=== PATIENT | female | born 1950 | race Caucasian/White ===

== ENCOUNTER 2018-08-13 06:55 | Day surgery (SDC) | payer OTHER, MEDICARE ==
[2018-08-13 07:31] VITALS: BMI 24.7
[2018-08-13] MEDS ORDERED: TETRACAINE/BENZOCAINE/BUTAMBEN 20 GM SPR TP ONE (07:55)
[2018-08-13 08:34] VITALS: TEMP 97.7
[2018-08-13 09:24] VITALS: BP 152/77; PULSE 60
--- NOTE | 2018-08-15 14:26 | PATH ---
Surgical Pathology Report Patient Name: TIFFANY FLORENTINO [facility]. Rec. #: [id number] /Age/Gender: 1950 (Age: 68) / F Account: [id number] Location: U-ENDOSCOPY Taken: 08/13/2018 Received: 08/13/2018 Reported: 08/14/2018 Physicians: Dru Etienne M.D. Specimen(s) Received A: BX 2ND PORTION DUODENUM AND DUODENAL BULB B: BX ANTRUM Clinical History Rule out ulcer Postoperative diagnosis: Atrophic gastritis Final Diagnosis A. DUODENUM, SECOND PORTION AND DUODENAL BULB, BIOPSY: Duodenal mucosa withOUT SIGNIFICANT PATHOLOGIC findings. B. STOMACH, ANTRUM, BIOPSY: GASTRIC ANTRAL MUCOSA WITH MILD CHRONIC GASTRITIS. IMMUNOHISTOCHEMICAL STAIN FOR H. PYLORI IS NEGATIVE. Electronically Signed Portia Paniting M.D. Gross Description A. Received in formalin, labeled "biopsy second portion of duodenum and duodenal bulb" are 2 camacho, irregular portions of soft tissue averaging 0.3 cm. in greatest dimension. The specimens are submitted in toto in one cassette. B. Received in formalin, labeled "biopsy antrum" are 4 camacho, irregular portions of soft tissue ranging from 0.2-0.3 cm. in greatest dimension. The specimens are submitted in toto in one cassette. 08/13/201808/13/2018
== END 2018-08-13 09:24 | disposition home or self-care (01) ==
LOC: JASU-ENDO 06:55
PROVIDERS: ATTEND Internal Medicine Gastroenterology
PROC: 0DB68ZX Excision of Stomach, Via Natural or Artificial Opening Endoscopic, Diagnostic (ICD-10-PCS; 2018-08-13)
PROC: 0DB98ZX Excision of Duodenum, Via Natural or Artificial Opening Endoscopic, Diagnostic (ICD-10-PCS; principal; 2018-08-13 08:00)
DX: K29.40 Chronic atrophic gastritis without bleeding (principal)
CPT/HCPCS: 88305-TC; 88342-TC

== ENCOUNTER 2018-11-07 01:28 | Inpatient (IN) | payer OTHER, MEDICARE ==
--- NOTE | 2018-11-07 02:42 | PDOC ---
History of Present Illness - General Chief Complaint: Syncope/Near Syncope Stated Complaint: FALL,SYNCOPE Time Seen by Provider: 11/07/18 02:42 History Source: Patient Exam Limitations: No Limitations - History of Present Illness Initial Comments: 11/07/18 03:05 68 year old female with PMH HTN, atrophic gastritis, restless leg syndrome, insomnia presented to ED for syncopal episode and fall. Pt stated she remembered getting out of bed to walk to the bathroom, and then layed back in bed. She then woke up face down on the ground with no memory of how she got there. She admitted to facial pain, headache, right sided neck pain. She admitted to headaches the last 3 days that will subside with tylenol/motrin. New medication changes include increase of dose of ropinirole from 0.25 mg to 0.5 mg yesterday, newly added medication x7 days. Allergies: NKDA PCP: Summer Oliveira Cardio: Odette Neuro: Barrera GI: Jaimie Past History - Past Medical History Allergies/Adverse Reactions: Allergies Allergy/AdvReac Type Severity Reaction Status Date / Time No Known Allergies Allergy Verified 11/07/18 02:30 Home Medications: Ambulatory Orders Lisinopril [Zestril] 20 mg PO DAILY 09/21/16 Multivitamins [Multivit ([facility] Formulary)] 1 tab PO DAILY 08/12/18 Vit B12/Folic Acid/B6/Aa No.15 [Glycotrol Capsule] 1 each PO DAILY 08/12/18 Losartan Potassium 25 mg PO DAILY 11/07/18 Ropinirole HCl 0.5 mg PO DAILY 11/07/18 Cardiac Disorders: Yes (MVP) GI Disorders: Yes (POLYP,DIVERTICULOSIS) HTN: Yes - Suicide/Smoking/Psychosocial Hx Smoking History: Never smoked Have you smoked in the past 12 months: No Information on smoking cessation initiated: No Hx Alcohol Use: No Drug/Substance Use Hx: No Substance Use Type: None Hx Substance Use Treatment: No Review of Systems - Review of Systems Able to Perform ROS?: Yes Comments:: 11/07/18 03:08 General: denied fever, chills, night sweats, generalized weakness. HEENT: denied sore throat, rhinorrhea, ear pain. Neck: admitted to neck pain. Heart: admitted to syncope. denied chest pain, palpitations, lower extremity swelling, diaphoresis. Respiratory: denied shortness of breath, cough, sputum production, hemoptysis. Abdomen: denied abdominal pain, nausea, vomiting, diarrhea, constipation, blood in stool. : denied dysuria, increased urinary frequency, hematuria, urinary incontinence , flank pain. Back: denied back pain. Musculoskeletal: denied joint pain, muscle pain, joint swelling. Neurological: admitted to headache. denied dizziness, numbness, tingling, weakness. Skin: admitted to abrasion. denied rash, laceration. *Physical Exam - Vital Signs Last Vital Signs Temp Pulse Resp BP Pulse Ox 97.9 F 73 18 160/84 96 11/07/18 01:28 11/07/18 01:28 11/07/18 01:28 11/07/18 01:28 11/07/18 01:28 - Physical Exam Comments: 11/07/18 03:09 Constitutional: Well-nourished, Well-developed, appearing stated age. HEENT: right frontal scalp hematoma. abrasion and redness to right upper face. EOMI. PERRLA. Neck: no midline c-spine tenderness. no paraspinal tenderness. Neck: supple. Full ROM. Heart: regular rhythm. no murmurs, rubs or gallops. Chest: no anterior chest wall tenderness. Lungs: clear to auscultation bilaterally. no crackles, rhonchi or wheezing. no stridor. Abdomen: soft, nontender. normal bowel sounds. no rebound, guarding, masses. Back: no midline t-spine or L-spine tenderness. no low back tenderness. Hips: pelvis stable. no hip tenderness. LE equal in length, no external rotation. Extremities: Peripheral pulses intact. No lower extremity edema. Neurological: CN 2-12 grossly intact. Moves all four extremities. Psych: awake, alert, oriented x3. Follows commands. Answers questions appropriately. Moderate Sedation - Procedure Monitoring Vital Signs: Procedure Monitoring Vital Signs Temperature 97.9 F 11/07/18 01:28 Pulse Rate 73 11/07/18 01:28 Respiratory Rate 18 11/07/18 01:28 Blood Pressure 160/84 11/07/18 01:28 O2 Sat by Pulse Oximetry (%) 96 11/07/18 01:28 ED Treatment Course - LABORATORY CBC & Chemistry Diagram: 11/07/18 03:01 11/07/18 05:46 Medical Decision Making - Medical Decision Making 11/07/18 03:11 68 year old female with above PMH presented to ED for syncopal episode and fall. Signs of trauma present to right upper face. Newly increased ropinirole dose from 0.25 to 0.5 mg yesterday. Initial Vital Signs Temp Pulse Resp BP Pulse Ox 97.9 F 73 18 160/84 96 11/07/18 01:28 11/07/18 01:28 11/07/18 01:28 11/07/18 01:28 11/07/18 01:28 Afebrile. No tachycardia. No tachypnea. Mild hypertension. No hypoxia on room air. Labs ordered: CBC, CMP, cardiac enzymes Imaging ordered: CXR, pelvis XR, CT head, CT cervical spine Medications ordered: Tylenol EKG performed at 0152: rate 71, regular rhythm, normal axis, normal intervals, no acute ST changes. CBC WBC 8.1 K/mm3 (4.0-10.0) 11/07/18 03:01 RBC 4.11 M/mm3 (3.60-5.2) 11/07/18 03:01 Hgb 13.5 GM/dL (10.7-15.3) 11/07/18 03:01 Hct 38.7 % (32.4-45.2) 11/07/18 03:01 MCV 94.1 fl (80-96) 11/07/18 03:01 MCH 32.9 pg (25.7-33.7) 11/07/18 03:01 MCHC 35.0 g/dl (32.0-36.0) 11/07/18 03:01 RDW 13.5 % (11.6-15.6) 11/07/18 03:01 Plt Count 209 K/MM3 (134-434) 11/07/18 03:01 MPV 8.3 fl (7.5-11.1) 11/07/18 03:01 Absolute Neuts (auto) 6.1 K/mm3 (1.5-8.0) 11/07/18 03:01 Neutrophils % 75.3 % (42.8-82.8) 11/07/18 03:01 Lymphocytes % 16.9 % (8-40) 11/07/18 03:01 Monocytes % 6.7 % (3.8-10.2) 11/07/18 03:01 Eosinophils % 0.7 % (0-4.5) 11/07/18 03:01 Basophils % 0.4 % (0-2.0) 11/07/18 03:01 Nucleated RBC % 0 % (0-0) 11/07/18 03:01 No leukocytosis. No anemia. 11/07/18 05:38 Lab reported CMP hemolyzed. Redraw sent. Lab reported CMP contaminated. Redraw sent. 11/07/18 06:23 CT head: right frontal scalp hematoma. no intracranial hematoma or mass. CT cervical spine: no acute fracture/dislocation. CTfacial bones: no acute fracture 11/07/18 06:41 CMP Sodium 139 mmol/L (136-145) 11/07/18 05:46 Potassium 4.4 mmol/L (3.5-5.1) 11/07/18 05:46 Chloride 109 mmol/L (98-107) H 11/07/18 05:46 Carbon Dioxide 24 mmol/L (21-32) 11/07/18 05:46 Anion Gap 7 MMOL/L (8-16) L 11/07/18 05:46 BUN 25 mg/dL (7-18) H 11/07/18 05:46 Creatinine 0.8 mg/dL (0.55-1.3) 11/07/18 05:46 Creat Clearance w eGFR > 60 (>60) 11/07/18 05:46 Random Glucose 104 mg/dL (74-106) 11/07/18 05:46 Calcium 8.9 mg/dL (8.5-10.1) 11/07/18 05:46 Total Bilirubin 0.4 mg/dL (0.2-1) 11/07/18 05:46 AST 18 U/L (15-37) 11/07/18 05:46 ALT 23 U/L (13-61) 11/07/18 05:46 Alkaline Phosphatase 84 U/L (45-117) 11/07/18 05:46 Creatine Kinase 173 IU/L (26-192) 11/07/18 05:46 Troponin I 0.09 ng/ml (0.00-0.05) H 11/07/18 05:46 Total Protein 6.7 g/dl (6.4-8.2) 11/07/18 05:46 Albumin 4.1 g/dl (3.4-5.0) 11/07/18 05:46 TSH 0.84 uIU/ml (0.358-3.74) 11/07/18 05:46 No electrolyte abnormalities. No OLMAN. BUN/CR>20 - Pt is dehydrated No transaminitis Normal TSH Positive troponin. Pt to be admitted to Dr. Oliveira's service for syncopal episode and positive troponin. Dr. Oliveira's office paged. Dr. Pino's office paged. 11/10/18 09:01 Official CXR report: no acute pathology Official Pelvis XR report: no acute pathology *DC/Admit/Observation/Transfer Diagnosis at time of Disposition: Fall, Troponin I above reference range Syncopal episodes Qualifiers: Syncope type: unspecified Qualified Code(s): R55 - Syncope and collapse - Discharge Dispostion Condition at time of disposition: Stable Decision to Admit order: Yes - Referrals - Patient Instructions - Post Discharge Activity
[2018-11-07] MEDS ORDERED: ACETAMINOPHEN 1000 MG/100 ML VIAL (NON FORMULARY) IVPB ONE (03:07)
[2018-11-07] MEDS ORDERED: ACETAMINOPHEN INJECTION 100 ML IVPB ONE (03:10)
[2018-11-07 03:17] LABS: BASO % 0.4 % (0-2.0); EOS % 0.7 % (0-4.5); HEMATOCRIT 38.7 % (32.4-45.2); HEMOGLOBIN 13.5 GM/dL (10.7-15.3); LYMPH % 16.9 % (8-40); MCH 32.9 pg (25.7-33.7); MEAN CELL VOLUME 94.1 fl (80-96); MEAN PLT VOLUME 8.3 fl (7.5-11.1); MONO % 6.7 % (3.8-10.2); NEUT % 75.3 % (42.8-82.8); PLATELET COUNT 209 K/MM3 (134-434); RBC 4.11 M/mm3 (3.60-5.2); RDW 13.5 % (11.6-15.6); WHITE BLOOD COUNT 8.1 K/mm3 (4.0-10.0)
--- NOTE | 2018-11-07 03:41 | PDOC ---
Attending Attestation - Resident Resident Name: AreliKeerthi - ED Attending Attestation I have performed the following: I have examined & evaluated the patient, The case was reviewed & discussed with the resident, I agree w/resident's findings & plan, Exceptions are as noted - HPI HPI: 11/07/18 06:08 68F pmh htn, gastritis, RLS, here after episode of kamar syncope. Pt woke up face down on the ground next to her bed with no recollection of what happened. Recent change in medication as documented in resident note. - Physicial Exam PE: 11/07/18 06:10 Agree with exam as documented by resident - Medical Decision Making 11/07/18 06:10 Syncopal event with possible head trauma f/u imaging, labs, ekg likely admit for full syncope eval
[2018-11-07 04:47] LABS: INR 0.96 (0.83-1.09); PROTHROMBIN TIME (PATIENT) 11.3 SEC (9.7-13.0)
[2018-11-07 04:49] LABS: ACTIVATED PTT 31.9 SECONDS (25.2-36.5)
[2018-11-07 05:38] VITALS: BMI 23.9
[2018-11-07 06:34] LABS: ALBUMIN 4.1 g/dl (3.4-5.0); ALK PHOS 84 U/L (45-117); ANION GAP 7 MMOL/L (8-16); BILIRUBIN,TOTAL 0.4 mg/dL (0.2-1); BLOOD UREA NITROGEN 25 mg/dL (7-18); CALCIUM 8.9 mg/dL (8.5-10.1); CHLORIDE 109 mmol/L (98-107); CO2 24 mmol/L (21-32); CREATININE 0.8 mg/dL (0.55-1.3); GLUCOSE,RANDOM 104 mg/dL (74-106); POTASSIUM 4.4 mmol/L (3.5-5.1); SGOT/AST 18 U/L (15-37); SGPT/ALT 23 U/L (13-61); SODIUM 139 mmol/L (136-145); TOT PROT 6.7 g/dl (6.4-8.2)
[2018-11-07] MEDS ORDERED: ASPIRIN 81 MG CHEWABLE TABLETS PO ONE (06:38)
[2018-11-07] MEDS ORDERED: ASPIRIN 81 MG CHEWABLE TABLETS ONE (06:41)
--- NOTE | 2018-11-07 07:22 | HP ---
Admitting History and Physical - Primary Care Physician PCP: Summer Oliveira S - Admission Chief Complaint: syncope; CP History of Present Illness: 68 year old female with PMH HTN, atrophic gastritis, restless leg syndrome, insomnia presented to ED for syncopal episode and fall. Pt stated she remembered getting out of bed to walk to the bathroom, and then layed back in bed. She then woke up face down on the ground with no memory of how she got there. She admitted to facial pain, headache, right sided neck pain. She admitted to headaches the last 3 days that will subside with tylenol/motrin. New medication changes include increase of dose of ropinirole from 0.25 mg to 0.5 mg yesterday, newly added medication x7 days. 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: Syncope Cardiovascular: Yes: HTN - Smoking History Smoking history: Never smoked Have you smoked in the past 12 months: No - Alcohol/Substance Use Hx Alcohol Use: No History of Substance Use: reports: None - Social History Usual Living Arrangement: Yes: Alone ADL: Independent 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: No Home Medications - Allergies Allergies/Adverse Reactions: Allergies Allergy/AdvReac Type Severity Reaction Status Date / Time No Known Allergies Allergy Verified 11/07/18 02:30 - Home Medications Home Medications: Ambulatory Orders Lisinopril [Zestril] 20 mg PO DAILY 09/21/16 Multivitamins [Multivit ([facility] Formulary)] 1 tab PO DAILY 08/12/18 Vit B12/Folic Acid/B6/Aa No.15 [Glycotrol Capsule] 1 each PO DAILY 08/12/18 Losartan Potassium 25 mg PO DAILY 11/07/18 Ropinirole HCl 0.5 mg PO DAILY 11/07/18 Family Disease History - Family Disease History Family History: Unremarkable Review of Systems - Review of Systems Constitutional: denies: Chills, Fever Eyes: denies: Blind Spots, Blurred Vision, Double Vision HENT: denies: Difficult Swallowing, Ear Pain Neck: denies: Pain on Movement, Stiffness, Tenderness Cardiovascular: denies: Chest Pain, Edema, Palpitations, Shortness of Breath Respiratory: denies: Cough, SOB Gastrointestinal: denies: Abdominal Pain, Constipation, Diarrhea, Vomiting Genitourinary: denies: Burning, Dysuria, Flank Pain Musculoskeletal: denies: Back Pain, Extremity Pain, Muscle Pain Integumentary: denies: Pruritis, Rash, Wound Neurological: reports: Change in LOC, Syncope. denies: Change in Speech, Confusion, Dizziness, Seizure, Tremors, Unsteady Gait, Weakness Endocrine: denies: Unexplained Weight Gain, Unexplained Weight Loss Hematology/Lymphatic: denies: Easily Bruised, Excessive Bleeding, Swollen Glands Psychiatric: denies: Anxiety, Depression, Suicidal Physical Examination Vital Signs: Vital Signs Temperature 97.9 F 11/07/18 01:28 Pulse Rate 73 11/07/18 01:28 Respiratory Rate 18 11/07/18 01:28 Blood Pressure 160/84 11/07/18 01:28 O2 Sat by Pulse Oximetry (%) 96 11/07/18 01:28 Constitutional: Yes: No Distress, Calm Eyes: Yes: Conjunctiva Clear HENT: Yes: Other (R facial scratces) Neck: Yes: Supple Cardiovascular: Yes: Regular Rate and Rhythm Respiratory: Yes: CTA Bilaterally Gastrointestinal: Yes: Soft. No: Tenderness Renal/: No: CVA Tenderness - Left, CVA Tenderness - Right, Hematuria Musculoskeletal: No: Joint Stiffness, Joint Swelling Extremities: No: Cold, Cool, Cyanosis Edema: No Integumentary: No: Rash, Venous Stasis Changes Neurological: Yes: WNL, Alert, Oriented ...Motor Strength: WNL Psychiatric: Yes: WNL, Alert, Oriented. No: Agitated, Suicidal Ideation Labs: CBC, BMP 11/07/18 03:01 11/07/18 05:46 Imaging - Results Chest X-ray: Report Reviewed Cat Scan: Report Reviewed Other: Report Reviewed Assessment/Plan 68 year old female with PMH HTN, atrophic gastritis, restless leg syndrome, insomnia presented to ED for syncopal episode and fall. New medication changes include increase of dose of ropinirole from 0.25 mg to 0.5 mg yesterday, newly added medication x7 days. 1 troponij borderline positive admit to telemetry cardiology and neurology eval falls pfx d.w pt and staff, d/w pt's daughter at bedside
--- NOTE | 2018-11-07 09:08 | EKG ---
Test Reason : Blood Pressure : / mmHG Vent. Rate : 071 BPM Atrial Rate : 071 BPM P-R Int : 162 ms QRS Dur : 088 ms QT Int : 404 ms P-R-T Axes : 072 045 046 degrees QTc Int : 439 ms NORMAL SINUS RHYTHM NORMAL ECG WHEN COMPARED WITH ECG OF 23-APR-2002 12:36, NO SIGNIFICANT CHANGE WAS FOUND Confirmed by CIARAN VIVEROS MD ([id number]) on 11/07/2018 9:07:43 AM Referred By: Confirmed By:CIARAN VIVEROS MD
--- NOTE | 2018-11-07 15:20 | CON.GI ---
Consult Consult Specialty:: Gastroenterology Referred by:: Dr Oliveira Reason for Consultation:: Syncope - History of Present Illness Chief Complaint: Syncope returning to bed after micturition History of Present Illness: 68F awake to urinate and suffered a syncopal spell without a prodrome as she was getting into bed. She awoke within 20 minutes prone in her hands and knees with right lateral paraorbital trauma. She denies any preceding pain, dyspnea, diaphoresis or palpitations. She had not strained to urinate. She has eaten well during the day. No recent vasovagal spells. She is being followed by Dr Rust and a felter tennis balls for generally not feeling well. She had a recent trial of pramipexole which she couldn't tolerate and has taken her first dose of ropinirole about 3 hours before the syncopal event. She has been experiencing indigestion, bloating and belching that led to an EGD with me on 08/13/18 which revealed only atrophic gastritis. I advised her to wean off Ranitidine and to try Gaviscon. She reports that she has been having abdominal cramps, a diminished appetite and hunger pangs since the EGD which failed to reveled H. pylori or celiac disease. She believes that the pramipexol was given to alleviate her abdominal cramps. - History Source History Provided By: Patient Limitations to Obtaining History: No Limitations - Past Medical History Cardio/Vascular: Yes: HTN, Other (mitral valve prolapse) Gastrointestinal: Yes: Diverticulosis, Gastritis (atrophic), Other (serrated adenoma right colon 2016) Musculoskeletal: Yes: Chronic low back pain (lumbar disc disease), Other ( cervical spinal stenosis) - Past Surgical History Past Surgical History: Yes: Breast Biopsy (bilateral breast cyst and fibroid), Colonoscopy, , Hysterectomy (TAHBSO), Upper Endoscopy - Alcohol/Substance Use Hx Alcohol Use: Yes (rare) History of Substance Use: reports: None - Smoking History Smoking history: Never smoked Have you smoked in the past 12 months: No - Social History Usual Living Arrangement: Alone () ADL: Independent 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 : [facility] 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: No Home Medications - Allergies Allergies/Adverse Reactions: Allergies Allergy/AdvReac Type Severity Reaction Status Date / Time No Known Allergies Allergy Verified 11/07/18 02:30 - Home Medications Home Medications: Ambulatory Orders Lisinopril [Zestril] 20 mg PO DAILY 09/21/16 Multivitamins [Multivit ([facility] Formulary)] 1 tab PO DAILY 08/12/18 Vit B12/Folic Acid/B6/Aa No.15 [Glycotrol Capsule] 1 each PO DAILY 08/12/18 Losartan Potassium 25 mg PO DAILY 11/07/18 Ropinirole HCl 0.5 mg PO DAILY 11/07/18 Family Disease History - Family Disease History Family Disease History: CA: Father (lung cancer), Other: Mother ( if COPD) Review of Systems - Review of Systems Constitutional: reports: Loss of Appetite Eyes: reports: No Symptoms HENT: reports: No Symptoms Neck: reports: No Symptoms Cardiovascular: reports: No Symptoms Respiratory: reports: No Symptoms Gastrointestinal: reports: Abdominal Pain, Bloating Genitourinary: reports: No Symptoms Musculoskeletal: reports: Back Pain, Muscle Cramps, Muscle Weakness Neurological: reports: Headache, Numbness Physical Exam-GI Vital Signs: Vital Signs Temperature 98.4 F 11/07/18 07:34 Pulse Rate 74 11/07/18 10:02 Respiratory Rate 16 11/07/18 10:02 Blood Pressure 127/74 11/07/18 10:02 O2 Sat by Pulse Oximetry (%) 99 11/07/18 10:02 CBC,CMP WBC 8.1 K/mm3 (4.0-10.0) 11/07/18 03:01 RBC 4.11 M/mm3 (3.60-5.2) 11/07/18 03:01 Hgb 13.5 GM/dL (10.7-15.3) 11/07/18 03:01 Hct 38.7 % (32.4-45.2) 11/07/18 03:01 MCV 94.1 fl (80-96) 11/07/18 03:01 MCH 32.9 pg (25.7-33.7) 11/07/18 03:01 MCHC 35.0 g/dl (32.0-36.0) 11/07/18 03:01 RDW 13.5 % (11.6-15.6) 11/07/18 03:01 Plt Count 209 K/MM3 (134-434) 11/07/18 03:01 MPV 8.3 fl (7.5-11.1) 11/07/18 03:01 Absolute Neuts (auto) 6.1 K/mm3 (1.5-8.0) 11/07/18 03:01 Neutrophils % 75.3 % (42.8-82.8) 11/07/18 03:01 Lymphocytes % 16.9 % (8-40) 11/07/18 03:01 Monocytes % 6.7 % (3.8-10.2) 11/07/18 03:01 Eosinophils % 0.7 % (0-4.5) 11/07/18 03:01 Basophils % 0.4 % (0-2.0) 11/07/18 03:01 Nucleated RBC % 0 % (0-0) 11/07/18 03:01 ESR 13 mm/hr (0-30) 11/07/18 12:55 Sodium 139 mmol/L (136-145) 11/07/18 05:46 Potassium 4.4 mmol/L (3.5-5.1) 11/07/18 05:46 Chloride 109 mmol/L (98-107) H 11/07/18 05:46 Carbon Dioxide 24 mmol/L (21-32) 11/07/18 05:46 Anion Gap 7 MMOL/L (8-16) L 11/07/18 05:46 BUN 25 mg/dL (7-18) H 11/07/18 05:46 Creatinine 0.8 mg/dL (0.55-1.3) 11/07/18 05:46 Creat Clearance w eGFR > 60 (>60) 11/07/18 05:46 Random Glucose 104 mg/dL (74-106) 11/07/18 05:46 Calcium 8.9 mg/dL (8.5-10.1) 11/07/18 05:46 Total Bilirubin 0.4 mg/dL (0.2-1) 11/07/18 05:46 AST 18 U/L (15-37) 11/07/18 05:46 ALT 23 U/L (13-61) 11/07/18 05:46 Alkaline Phosphatase 84 U/L (45-117) 11/07/18 05:46 Creatine Kinase 209 IU/L (26-192) H 11/07/18 12:01 Creatine Kinase Index 0.6 % (0.0-5.0) 11/07/18 12:01 CK-MB (CK-2) 1.4 ng/mL (0.5-3.6) 11/07/18 12:01 Troponin I < 0.02 ng/ml (0.00-0.05) 11/07/18 12:01 Total Protein 6.7 g/dl (6.4-8.2) 11/07/18 05:46 Albumin 4.1 g/dl (3.4-5.0) 11/07/18 05:46 Vitamin B12 560 pg/ml (193-986) 11/07/18 12:55 TSH 0.84 uIU/ml (0.358-3.74) 11/07/18 05:46 Current Medications Generic Name Dose Route Start Last Admin Trade Name Freq PRN Reason Stop Dose Admin Aspirin 81 mg 11/08/18 10:00 Asa - PO DAILY [facility] Lisinopril 20 mg 11/08/18 10:00 Prinivil PO DAILY [facility] Losartan Potassium 25 mg 11/08/18 10:00 Cozaar - PO DAILY [facility] Multivitamins/Minerals/Vitamin C 1 tab 11/08/18 10:00 Tab-A-Vit - PO DAILY [facility] Non-Formulary Medication 1 each 11/08/18 10:00 Vit B12/Folic Acid/B6/Aa No.15 [Glycotrol Capsule] PO DAILY [facility] Ranitidine HCl 150 mg 11/08/18 10:00 Zantac - PO DAILY [facility] Ropinirole HCl 0.5 mg 11/08/18 10:00 Requip - PO DAILY [facility] Constitutional: Yes: Anxious Eyes: Yes: Conjunctiva Clear HENT: Yes: Other (right lateral paraorbital maceration and bruising) Neck: Yes: Supple Cardiovascular: Yes: Regular Rate and Rhythm Respiratory: Yes: CTA Bilaterally Gastrointestinal Inspection: Yes: Scars (vertical suprapubic incision) ...Auscultate: Yes: Normoactive Bowel Sounds ...Palpate: Yes: Soft, Other (nontender) ...Rectal Exam: Yes: Guaiac Negative (no masses, brown guaiac negative stool) Edema: No Peripheral Pulses WNL: Yes Neurological: Yes: Alert, Oriented Labs: CBC, BMP 11/07/18 03:01 11/07/18 05:46 INR, PTT INR 0.96 (0.83-1.09) 11/07/18 04:14 Problem List - Problems (1) Syncopal episodes Assessment/Plan: I do not think that this syncopal episode is related to any GI process. No GI testing is planned. If GI bleeding or any GI symptoms arise please recall us. Code(s): R55 - SYNCOPE AND COLLAPSE (2) Serrated adenoma of colon Code(s): D12.6 - BENIGN NEOPLASM OF COLON, UNSPECIFIED (3) Diverticulosis Code(s): K57.90 - DVRTCLOS OF INTEST, PART UNSP, W/O PERF OR ABSCESS W/O BLEED (4) Atrophic gastritis Code(s): K29.40 - CHRONIC ATROPHIC GASTRITIS WITHOUT BLEEDING (5) Hypertension Code(s): I10 - ESSENTIAL (PRIMARY) HYPERTENSION (6) Lumbar back pain Code(s): M54.5 - LOW BACK PAIN (7) Spinal stenosis in cervical region Code(s): M48.02 - SPINAL STENOSIS, CERVICAL REGION
--- NOTE | 2018-11-07 16:16 | CON.CARD ---
Consult Consult Specialty:: Cardiology Referred by:: Summer Oliveira MD Reason for Consultation:: Syncope, demand ischemia - History of Present Illness Chief Complaint: Post micturition syncope History of Present Illness: Chief Complaint: Syncope returning to bed after micturition History of Present Illness: 68F awake to urinate and suffered a syncopal spell without prodromal as she was getting into bed. She awoke within 20 minutes prone in her hands and knees with right lateral paraorbital trauma. She denies any preceding pain, dyspnea, near syncope, diaphoresis or palpitations. She had not strained to urinate. She has eaten well during the day. No recent vasovagal spells. She is being followed by Dr Rust and a electrical helper for generally not feeling well. She had a recent trial of pramipexole which she couldn't tolerate and has taken her first dose of ropinirole about 3 hours before the syncopal event. Allergies: NKDA PCP: Summer Oliveira Cardio: Odette Neuro: Barrera GI: Jaimie - History Source History Provided By: Patient Limitations to Obtaining History: No Limitations - Past Medical History Cardio/Vascular: Yes: HTN, Other (mitral valve prolapse) Gastrointestinal: Yes: Diverticulosis, Gastritis (atrophic), Other (serrated adenoma right colon 2016) Musculoskeletal: Yes: Chronic low back pain (lumbar disc disease), Other ( cervical spinal stenosis) - Past Surgical History Past Surgical History: Yes: Breast Biopsy (bilateral breast cyst and fibroid), Colonoscopy, , Hysterectomy (TAHBSO), Upper Endoscopy - Alcohol/Substance Use Hx Alcohol Use: Yes (rare) History of Substance Use: reports: None - Smoking History Smoking history: Never smoked Have you smoked in the past 12 months: No - Social History Usual Living Arrangement: Alone () ADL: Independent 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[employer] 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: No Home Medications - Allergies Allergies/Adverse Reactions: Allergies Allergy/AdvReac Type Severity Reaction Status Date / Time No Known Allergies Allergy Verified 11/07/18 02:30 - Home Medications Home Medications: Ambulatory Orders Lisinopril [Zestril] 20 mg PO DAILY 09/21/16 Multivitamins [Multivit ([facility] Formul[facility])] 1 tab PO DAILY 08/12/18 Vit B12/Folic Acid/B6/Aa No.15 [Glycotrol Capsule] 1 each PO DAILY 08/12/18 Losartan Potassium 25 mg PO DAILY 11/07/18 Ropinirole HCl 0.5 mg PO DAILY 11/07/18 Family Disease History - Family Disease History Family Disease History: CA: Father (lung cancer), Other: Mother ( if COPD) Review of Systems - Review of Systems Neurological: reports: Syncope Vital Signs: Vital Signs Temperature 98.4 F 11/07/18 07:34 Pulse Rate 74 11/07/18 10:02 Respiratory Rate 16 11/07/18 10:02 Blood Pressure 127/74 11/07/18 10:02 O2 Sat by Pulse Oximetry (%) 99 11/07/18 10:02 Constitutional: Yes: No Distress, Calm, Thin Neck: Yes: Supple Respiratory: Yes: Regular, CTA Bilaterally Gastrointestinal: Yes: Normal Bowel Sounds, Soft Cardiovascular: Yes: Regular Rate and Rhythm JVD: No Carotid Bruit: No Heart Sounds: Yes: S1, S2 Edema: No - Other Data Labs, Other Data: CBC, BMP 11/07/18 03:01 11/07/18 05:46 INR, PTT INR 0.96 (0.83-1.09) 11/07/18 04:14 Troponin, BNP 11/07/18 11/07/18 11/07/18 03:01 04:37 05:46 Troponin I Cancelled No Result Required. 0.09 H 11/07/18 12:01 Troponin I < 0.02 Troponin, BNP 11/07/18 11/07/18 11/07/18 03:01 04:37 05:46 Troponin I Cancelled No Result Required. 0.09 H 11/07/18 12:01 Troponin I < 0.02 NSR @ 71 Ejection Fraction %: LVEF > or = 40 % Imaging - Results Chest X-ray: Report Reviewed (NAD) Cat Scan: Report Reviewed (HCT: Negative) Problem List - Problems (1) Hypertension Code(s): I10 - ESSENTIAL (PRIMARY) HYPERTENSION Qualifiers: Hypertension type: essential hypertension Qualified Code(s): I10 - Essential (primary) hypertension (2) Syncopal episodes Code(s): R55 - SYNCOPE AND COLLAPSE Qualifiers: Syncope type: unspecified Qualified Code(s): R55 - Syncope and collapse (3) Demand ischemia Code(s): I24.8 - OTHER FORMS OF ACUTE ISCHEMIC HEART DISEASE Assessment/Plan 1. Syncope without prodrome 2. Hypertension 3. Demand ischemia 4. Mitral valve prolapse 5. Restless leg syndrome P: 1. quantitative strategy analyst to assess pause, trops downtrending 2. Check orthostatic VS 3. Continue lisinopril 20 qd, recommend holding losartan 4. Review recent echo for LV fxn assessment 5. Thank you for consultative opportunity
[2018-11-07] MEDS: ACETAMINOPHEN 325 MG TABLET (FP) PO PRN (21:41)
[2018-11-08] MEDS: ACETAMINOPHEN 325 MG TABLET (FP) PO PRN ×2 (07:54→22:20)
[2018-11-08] MEDS: RANITIDINE HCL 150 MG TABLET (FP) PO SCH (09:11)
[2018-11-08] MEDS: MULTIVITAMINS (DAILY MVI) TABLET (FP) PO SCH (09:11)
[2018-11-08] MEDS: MULTIVITAMINS THER W-MINERALS COMBO TABLET (FP) PO SCH (09:11)
[2018-11-08] MEDS: ASPIRIN 81 MG CHEWABLE TABLETS PO SCH (09:11)
[2018-11-08] MEDS: rOPINIRole HCL 0.25 MG TABLET PO SCH ×2 (09:12→15:00)
--- NOTE | 2018-11-08 09:20 | PN ---
Progress Note, Physician Chief Complaint: no new c.o consults noted tests d.w pt renal cyst/mass eval - Current Medication List Current Medications: Active Medications Acetaminophen (Tylenol -) 650 mg PO Q4H PRN PRN Reason: PAIN 1-3 Last Admin: 11/08/18 07:54 Dose: 650 mg Aspirin (Asa -) 81 mg PO DAILY [facility] Last Admin: 11/08/18 09:11 Dose: 81 mg Lisinopril (Prinivil) 20 mg PO DAILY [facility] Last Admin: 11/08/18 09:11 Dose: 20 mg Multivitamins/Minerals (Theragran-M) 1 each PO DAILY [facility] Last Admin: 11/08/18 09:11 Dose: 1 each Multivitamins/Minerals/Vitamin C (Tab-A-Vit -) 1 tab PO DAILY [facility] Last Admin: 11/08/18 09:11 Dose: 1 tab Ranitidine HCl (Zantac -) 150 mg PO DAILY [facility] Last Admin: 11/08/18 09:11 Dose: 150 mg Ropinirole HCl (Requip -) 0.5 mg PO DAILY [facility] - Objective Vital Signs: Vital Signs Temperature 97.8 F 11/08/18 06:22 Pulse Rate 62 11/08/18 06:22 Respiratory Rate 18 11/08/18 06:22 Blood Pressure 108/57 L 11/08/18 06:22 O2 Sat by Pulse Oximetry (%) 100 11/07/18 20:45 Constitutional: Yes: No Distress, Calm Eyes: Yes: Conjunctiva Clear HENT: Yes: Atraumatic Neck: Yes: Supple Cardiovascular: Yes: Regular Rate and Rhythm Respiratory: Yes: CTA Bilaterally Gastrointestinal: Yes: Soft. No: Distention Genitourinary: No: CVA Tenderness - Left, CVA Tenderness - Right Musculoskeletal: No: Joint Stiffness, Joint Swelling Extremities: No: Cold, Cool Edema: No Integumentary: No: Rash, Venous Stasis Changes Neurological: Yes: WNL, Alert, Oriented ...Motor Strength: WNL Psychiatric: Yes: WNL, Alert, Oriented. No: Agitated, Suicidal Ideation Labs: CBC, BMP 11/07/18 03:01 11/07/18 05:46 INR, PTT INR 0.96 (0.83-1.09) 11/07/18 04:14 - ....Imaging Other: Report Reviewed Assessment/Plan 68 year old female with PMH HTN, atrophic gastritis, restless leg syndrome, insomnia presented to ED for syncopal episode and fall. New medication changes include increase of dose of ropinirole - now held 1 troponin borderline positive cardiology and neurology eval; anti-htn meds per cardio eval for renal cyst/mass - will need fu outpt too falls pfx pato.w pt and staff
[2018-11-08] MEDS ORDERED: LOSARTAN POTASSIUM 25 MG TABLET PO SCH (10:00)
[2018-11-08] MEDS ORDERED: LISINOPRIL 20 MG TABLET (FP) PO SCH ×2 (10:00)
--- NOTE | 2018-11-08 10:10 | CON.GU ---
Consult - History of Present Illness History of Present Illness: 68 yo female admitted s/p syncopal episode. Had NCCT done for abdominal pain, noted to have RLP 1.4cm complex cyst vs solid lesion-MRI was recommended. Renal sono last month showed RLP cyst. Pt denies any flank pain. No hematuria - Past Medical History Cardio/Vascular: Yes: HTN, Other (mitral valve prolapse) Gastrointestinal: Yes: Diverticulosis, Gastritis (atrophic), Other (serrated adenoma right colon 2016) Musculoskeletal: Yes: Chronic low back pain (lumbar disc disease), Other ( cervical spinal stenosis) - Past Surgical History Past Surgical History: Yes: Breast Biopsy (bilateral breast cyst and fibroid), Colonoscopy, , Hysterectomy (TAHBSO), Upper Endoscopy - Alcohol/Substance Use Hx Alcohol Use: Yes (rare) History of Substance Use: reports: None - Smoking History Smoking history: Never smoked Have you smoked in the past 12 months: No - Social History Usual Living Arrangement: Alone () ADL: Independent 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[employer] 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: No Home Medications - Allergies Allergies/Adverse Reactions: Allergies Allergy/AdvReac Type Severity Reaction Status Date / Time No Known Allergies Allergy Verified 11/07/18 02:30 - Home Medications Home Medications: Ambulatory Orders Lisinopril [Zestril] 20 mg PO DAILY 09/21/16 Multivitamins [Multivit ([facility] Formul[facility])] 1 tab PO DAILY 08/12/18 Vit B12/Folic Acid/B6/Aa No.15 [Glycotrol Capsule] 1 each PO DAILY 08/12/18 Losartan Potassium 25 mg PO DAILY 11/07/18 Ropinirole HCl 0.5 mg PO DAILY 11/07/18 Family Disease History - Family Disease History Family Disease History: CA: Father (lung cancer), Other: Mother ( if COPD) Review of Systems - Review of Systems Genitourinary: reports: No Symptoms Physical Exam- Vital Signs: Vital Signs Temperature 97.8 F 11/08/18 06:22 Pulse Rate 62 11/08/18 06:22 Respiratory Rate 18 11/08/18 06:22 Blood Pressure 108/57 L 11/08/18 06:22 O2 Sat by Pulse Oximetry (%) 100 11/07/18 20:45 Renal/: Yes: WNL Labs: CBC, BMP 11/07/18 03:01 11/07/18 05:46 Imaging - Results Cat Scan: Report Reviewed Ultrasound: Report Reviewed Problem List - Problems (1) Renal cyst, right Assessment/Plan: low level of suspicion in light of sono and CT, however, will need MRI with contrast to confirm Code(s): N28.1 - CYST OF KIDNEY, ACQUIRED
--- NOTE | 2018-11-08 12:42 | PN ---
Progress Note (short form) - Note Progress Note: Chief Complaint: Events noted, notes reviewed, denies any dyspnea, denies any chest pain, no recurrent syncope, no arrhythmia noted on monitor History of Present Illness: Patient seen and examined on telemetry. Events noted, notes reviewed, denies any dyspnea, denies any chest pain, no recurrent syncope, no arrhythmia noted on monitor - Current Medication List Current Medications: Active Medications Current Medications Acetaminophen (Tylenol -) 650 mg PO Q4H PRN PRN Reason: PAIN 1-3 Last Admin: 11/08/18 07:54 Dose: 650 mg Aspirin (Asa -) 81 mg PO DAILY [facility] Last Admin: 11/08/18 09:11 Dose: 81 mg Lisinopril (Prinivil) 20 mg PO DAILY [facility] Last Admin: 11/08/18 09:11 Dose: 20 mg Multivitamins/Minerals (Theragran-M) 1 each PO DAILY [facility] Last Admin: 11/08/18 09:11 Dose: 1 each Multivitamins/Minerals/Vitamin C (Tab-A-Vit -) 1 tab PO DAILY [facility] Last Admin: 11/08/18 09:11 Dose: 1 tab Ranitidine HCl (Zantac -) 150 mg PO DAILY [facility] Last Admin: 11/08/18 09:11 Dose: 150 mg Ropinirole HCl (Requip -) 0.5 mg PO DAILY [facility] - Review of Systems Constitutional: denies: Chills, Fever Cardiovascular: As noted above Respiratory: denies: Cough or Sputum Production Gastrointestinal: denies: Nausea, Vomiting, Diarrhea, Constipation or Abdominal Pain Genitourinary: denies: Dysuria, Hematuria Neurological: denies: Dizziness - Objective Vital Signs: Last Vital Signs Temp Pulse Resp BP Pulse Ox 97.6 F 69 18 127/65 100 11/08/18 09:00 11/08/18 09:00 11/08/18 09:00 11/08/18 09:00 11/08/18 09:00 Intake & Output 11/05/18 11/06/18 11/07/18 11/08/18 23:59 23:59 23:59 23:59 Intake Total 10 0 Balance 10 0 Weight 135 lb Neck: Supple Negative JVD Cardiovascular: S1 S2 Regularly Rate and Rhythm Respiratory: Clear to A&P Bilaterally Gastrointestinal: Soft Benign Normal Bowel Sounds Ext: No Edema Labs: CBC, BMP 11/07/18 03:01 11/07/18 05:46 Troponin, BNP 11/07/18 11/08/18 12:01 06:30 Troponin I < 0.02 < 0.02 Assessment/Plan ASSESSMENT: 1. Syncope without prodrome, neurocardiogenic syncope, vaso-depressor vs. cardio -inhibitory 2. CAD with evidence of demand ischemia 3. Hypertension 4. Mitral valve prolapse syndrome 5. Restless leg syndrome PLAN: 1. Continue Lisinopril but decrease dosage 2. Continue to withhold Losartan 3. Add B-Blockers, Toprol XL 4. If stable plan to D/C home tomorrow with additional outpatient evaluation including tilt table testing, discussed in detail with the patient Patricia Valdez M.D.
--- NOTE | 2018-11-08 13:28 | CON.NEURO ---
Consult - Past Medical History Cardio/Vascular: Yes: HTN, Other (mitral valve prolapse) Gastrointestinal: Yes: Diverticulosis, Gastritis (atrophic), Other (serrated adenoma right colon 2016) Musculoskeletal: Yes: Chronic low back pain (lumbar disc disease), Other ( cervical spinal stenosis) - Past Surgical History Past Surgical History: Yes: Breast Biopsy (bilateral breast cyst and fibroid), Colonoscopy, , Hysterectomy (TAHBSO), Upper Endoscopy - Alcohol/Substance Use Hx Alcohol Use: Yes (rare) History of Substance Use: reports: None - Smoking History Smoking history: Never smoked Have you smoked in the past 12 months: No - Social History Usual Living Arrangement: Alone () ADL: Independent 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 Home Medications - Allergies Allergies/Adverse Reactions: Allergies Allergy/AdvReac Type Severity Reaction Status Date / Time No Known Allergies Allergy Verified 11/07/18 02:30 - Home Medications Home Medications: Ambulatory Orders Lisinopril [Zestril] 20 mg PO DAILY 09/21/16 Multivitamins [Multivit ([facility] Formul[facility])] 1 tab PO DAILY 08/12/18 Vit B12/Folic Acid/B6/Aa No.15 [Glycotrol Capsule] 1 each PO DAILY 08/12/18 Losartan Potassium 25 mg PO DAILY 11/07/18 Ropinirole HCl 0.5 mg PO DAILY 11/07/18 Family Disease History - Family Disease History Family Disease History: CA: Father (lung cancer), Other: Mother ( if COPD) Physical Exam-Neuro Vital Signs: Vital Signs Temperature 97.6 F 11/08/18 09:00 Pulse Rate 69 11/08/18 09:00 Respiratory Rate 18 11/08/18 09:00 Blood Pressure 127/65 11/08/18 09:00 O2 Sat by Pulse Oximetry (%) 100 11/08/18 09:00 Labs: CBC, BMP 11/07/18 03:01 11/07/18 05:46 INR, PTT INR 0.96 (0.83-1.09) 11/07/18 04:14 Assessment/Plan cc Syncopal episode HPI 68 year old female history of HTN, Cervical spinal tenosis, Diverticulosis. Patient was diagnosed with Restless leg syndrome. Initially in september 2018. She was given Mirapex and was stopped due to side effect and later she was started on requip. Patient was on first day of full dose of .5 mg qhs and she had syncopal episode. She fell on her face without any warning. There was no tonic clonic activity, no urinarion or tongue bite. Patient had normal ct head . She continue to have difficulty sleeping and tingling sensation in her leg. Patient also complain of mild headahce twigs lasting one to two minutes. PMH as ABOVE. Past Surgical History: Yes: Breast Biopsy (bilateral breast cyst and fibroid), Colonoscopy, , Hysterectomy (TAHBSO), Upper Endoscopy Allergies/Adverse Reactions: Allergies Allergy/AdvReac Type Severity Reaction Status Date / Time No Known Allergies Allergy Verified 11/07/18 02:30 Home Medications: Lisinopril [Zestril] 20 mg PO DAILY 09/21/16 Multivitamins [Multivit ([facility] Formulary)] 1 tab PO DAILY 08/12/18 Vit B12/Folic Acid/B6/Aa No.15 [Glycotrol Capsule] 1 each PO DAILY 08/12/18 Losartan Potassium 25 mg PO DAILY 11/07/18 Ropinirole HCl 0.5 mg PO DAILY 11/07/18 Family Disease History: CA: Father (lung cancer), Other: Mother ( if COPD) ROS reviewed in chart NEUROLOGICAL EXAMINATION Alert oriented x 3, speech is normal cn all intact, eomi, pupils reactive, no face asymmetry, sensation is normal, vf normal by confrontation motor 5/5 all intact, FTN, HTS is normal sensation is normal reflex are diminished generalized ct head is normal Assessment/PLan 1. Syncopal episode, etiology unclear ? recently started on requip , and no evidence of epileptic seizure Plan: No need for MRIof brain and EEG -discussed at length at various alternative, gabapnetin could be a good choice , may give a trial once she is dicharged as outpatient - continue tylenol for mild headache - Concur with holding requip for now Thanking you so much Edward House MD
[2018-11-08] MEDS: metoPROLOL SUCCINATE 25 MG TAB.SR.24H (FP) PO SCH (15:03)
[2018-11-09] MEDS: RANITIDINE HCL 150 MG TABLET (FP) PO SCH (09:55)
--- NOTE | 2018-11-09 09:55 | DS ---
Physical Examination Vital Signs: Vital Signs Temperature 97.6 F 11/09/18 06:00 Pulse Rate 60 11/09/18 06:00 Respiratory Rate 18 11/09/18 06:00 Blood Pressure 111/62 11/09/18 06:00 O2 Sat by Pulse Oximetry (%) 99 11/08/18 20:39 Findings/Remarks: feels well no recurrent LOC but meds adjusted per cardiology and pt is afraid to go home before she makes sure she can tolerate new meds, lives alone; also awaiting for abdomen / renal MRI; said she lost about 20 lbs in 1-2 years, initially because she changed her diet per GI (high fiber) then because she had no apetite; no smokimgl up to date with pap [employer]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 No: Distention Renal/: No: CVA Tenderness - Left, CVA Tenderness - Right Musculoskeletal: No: Joint Stiffness, Joint Swelling Extremities: No: Cold, Cool, Cyanosis Edema: No Integumentary: No: Rash, Venous Stasis Changes Neurological: Yes: WNL, Alert, Oriented ...Motor Strength: WNL Psychiatric: Yes: WNL, Alert, Oriented. No: Agitated, Suicidal Ideation Labs: CBC, BMP 11/07/18 03:01 11/07/18 05:46 Discharge Summary Reason For Visit: SYNCOPE FALL ELEVATED TROPONIN Current Active Problems Atrophic gastritis (Acute) Demand ischemia (Acute) Diverticulosis (Acute) Fall (Acute) Hypertension (Acute) Lumbar back pain (Acute) Renal cyst, right (Acute) Serrated adenoma of colon (Acute) Spinal stenosis in cervical region (Acute) Syncopal episodes (Acute) Troponin I above reference range (Acute) Procedures: Principal: admitted with syncope, h/o HTN and RLSd on zestril and recently started on requip Other Procedures: requis stopped; BP meds adjusted per cardiology and neurology; . also seen by GI and for weight loss; complex renal cyst/mass; Hospital Course: improved with above; DC home and f/u as advised; Condition: Stable - Instructions Diet, Activity, Other Instructions: f/u PCP cardiology and neurology in 1-2 weeks GI f/u as advised eval for renal cyst/mass management; RTER if worse or recurrent c/o Referrals: Summer Oliveira [Primary Care Provider] - Baron Rust MD [Staff Physician] - Chevy Scott MD., MD [Staff Physician] - Dru Etienne MD [Staff Physician] - Olrando Oneal MD [Staff Physician] - Disposition: HOME - Home Medications Comprehensive Discharge Medication List: Ambulatory Orders Lisinopril [Zestril] 20 mg PO DAILY 09/21/16 Multivitamins [Multivit ([facility] Formulary)] 1 tab PO DAILY 08/12/18 Vit B12/Folic Acid/B6/Aa No.15 [Glycotrol Capsule] 1 each PO DAILY 08/12/18 Losartan Potassium 25 mg PO DAILY 11/07/18 Ropinirole HCl 0.5 mg PO DAILY 11/07/18
[2018-11-09] MEDS: metoPROLOL SUCCINATE 25 MG TAB.SR.24H (FP) PO SCH (09:56)
[2018-11-09] MEDS: MULTIVITAMINS THER W-MINERALS COMBO TABLET (FP) PO SCH (09:56)
[2018-11-09] MEDS: MULTIVITAMINS (DAILY MVI) TABLET (FP) PO SCH (09:56)
[2018-11-09] MEDS: ASPIRIN 81 MG CHEWABLE TABLETS PO SCH (09:56)
[2018-11-09] MEDS: LISINOPRIL 10 MG TABLET (FP) PO SCH (09:56)
--- NOTE | 2018-11-09 10:09 | PN ---
Progress Note (short form) - Note Progress Note: Chief Complaint: Events noted, notes reviewed, denies any dyspnea, denies any chest pain, no recurrent syncope, no arrhythmia noted on monitor History of Present Illness: Patient seen and examined on telemetry. Events noted, notes reviewed, denies any dyspnea, denies any chest pain, no recurrent syncope, no arrhythmia noted on monitor Patient was advised to follow up with Dr. Pino this coming week after D/C home - Current Medication List Current Medications: Active Medications Current Medications Acetaminophen (Tylenol -) 650 mg PO Q4H PRN PRN Reason: PAIN 1-3 Last Admin: 11/08/18 22:20 Dose: 650 mg Aspirin (Asa -) 81 mg PO DAILY [facility] Last Admin: 11/09/18 09:56 Dose: 81 mg Lisinopril (Prinivil) 10 mg PO DAILY [facility] Last Admin: 11/09/18 09:56 Dose: 10 mg Metoprolol Succinate (Toprol Xl -) 25 mg PO DAILY [facility] Last Admin: 11/09/18 09:56 Dose: 25 mg Multivitamins/Minerals (Theragran-M) 1 each PO DAILY [facility] Last Admin: 11/09/18 09:56 Dose: 1 each Multivitamins/Minerals/Vitamin C (Tab-A-Vit -) 1 tab PO DAILY [facility] Last Admin: 11/09/18 09:56 Dose: 1 tab Ranitidine HCl (Zantac -) 150 mg PO DAILY [facility] Last Admin: 11/09/18 09:55 Dose: 150 mg - Review of Systems Constitutional: denies: Chills, Fever Cardiovascular: As noted above Respiratory: denies: Cough or Sputum Production Gastrointestinal: denies: Nausea, Vomiting, Diarrhea, Constipation or Abdominal Pain Genitourinary: denies: Dysuria, Hematuria Neurological: denies: Dizziness - Objective Vital Signs: Last Vital Signs Temp Pulse Resp BP Pulse Ox 97.6 F 60 18 111/62 99 11/09/18 06:00 11/09/18 06:00 11/09/18 06:00 11/09/18 06:00 11/08/18 20:39 Intake & Output 11/06/18 11/07/18 11/08/18 11/09/18 23:59 23:59 23:59 23:59 Intake Total 10 490 10 Balance 10 490 10 Weight 135 lb Neck: Supple Negative JVD Cardiovascular: S1 S2 Regularly Rate and Rhythm Respiratory: Clear to A&P Bilaterally Gastrointestinal: Soft Benign Normal Bowel Sounds Ext: No Edema Labs: CBC, BMP 11/07/18 03:01 11/07/18 05:46 Assessment/Plan ASSESSMENT: 1. Syncope without prodrome, neurocardiogenic syncope, vaso-depressor vs. cardio -inhibitory 2. CAD with evidence of demand ischemia 3. Hypertension 4. Mitral valve prolapse syndrome 5. Restless leg syndrome PLAN: 1. Continue Lisinopril 2. Continue to withhold Losartan 3. Continue Toprol XL and titrate dose as tolerated 4. Ambulate and plan to D/C home today with additional outpatient evaluation including tilt table testing, discussed in detail with the patient Patricia Valdez M.D.
[2018-11-09] MEDS: ACETAMINOPHEN 325 MG TABLET (FP) PO PRN (21:34)
[2018-11-10] MEDS: RANITIDINE HCL 150 MG TABLET (FP) PO SCH (09:48)
[2018-11-10] MEDS: MULTIVITAMINS (DAILY MVI) TABLET (FP) PO SCH (09:48)
[2018-11-10] MEDS: metoPROLOL SUCCINATE 25 MG TAB.SR.24H (FP) PO SCH (09:48)
[2018-11-10] MEDS: LISINOPRIL 10 MG TABLET (FP) PO SCH (09:48)
[2018-11-10] MEDS: ASPIRIN 81 MG CHEWABLE TABLETS PO SCH (09:48)
[2018-11-10] MEDS: MULTIVITAMINS THER W-MINERALS COMBO TABLET (FP) PO SCH (09:48)
--- NOTE | 2018-11-10 10:36 | PN ---
Progress Note, Physician History of Present Illness: No further near or true syncope. awaiting abd MRI results. - Current Medication List Current Medications: Active Medications Acetaminophen (Tylenol -) 650 mg PO Q4H PRN PRN Reason: PAIN 1-3 Last Admin: 11/09/18 21:34 Dose: 650 mg Aspirin (Asa -) 81 mg PO DAILY [facility] Last Admin: 11/10/18 09:48 Dose: 81 mg Lisinopril (Prinivil) 10 mg PO DAILY [facility] Last Admin: 11/10/18 09:48 Dose: 10 mg Metoprolol Succinate (Toprol Xl -) 25 mg PO DAILY [facility] Last Admin: 11/10/18 09:48 Dose: 25 mg Multivitamins/Minerals (Theragran-M) 1 each PO DAILY [facility] Last Admin: 11/10/18 09:48 Dose: 1 each Multivitamins/Minerals/Vitamin C (Tab-A-Vit -) 1 tab PO DAILY [facility] Last Admin: 11/10/18 09:48 Dose: 1 tab Ranitidine HCl (Zantac -) 150 mg PO DAILY [facility] Last Admin: 11/10/18 09:48 Dose: 150 mg - Objective Vital Signs: Vital Signs Temperature 98.5 F 11/10/18 09:45 Pulse Rate 61 11/10/18 09:45 Respiratory Rate 20 11/10/18 09:45 Blood Pressure 126/65 11/10/18 09:45 O2 Sat by Pulse Oximetry (%) 100 11/10/18 09:00 Constitutional: Yes: No Distress, Calm HENT: Yes: Other (Periorbital ecchymoses) Neck: Yes: Supple Cardiovascular: Yes: Regular Rate and Rhythm Respiratory: Yes: Regular, CTA Bilaterally Gastrointestinal: Yes: Normal Bowel Sounds, Soft Edema: No Labs: CBC, BMP 11/07/18 03:01 11/07/18 05:46 INR, PTT INR 0.96 (0.83-1.09) 11/07/18 04:14 - ....Imaging EKG: Report Reviewed (Tele: NSR w/o events) Problem List - Problems (1) Hypertension Code(s): I10 - ESSENTIAL (PRIMARY) HYPERTENSION Qualifiers: Hypertension type: essential hypertension Qualified Code(s): I10 - Essential (primary) hypertension (2) Syncopal episodes Code(s): R55 - SYNCOPE AND COLLAPSE Qualifiers: Syncope type: unspecified Qualified Code(s): R55 - Syncope and collapse (3) Demand ischemia Code(s): I24.8 - OTHER FORMS OF ACUTE ISCHEMIC HEART DISEASE (4) Mitral valve prolapse syndrome Code(s): I34.1 - NONRHEUMATIC MITRAL (VALVE) PROLAPSE Assessment/Plan 1. Syncope without prodrome, neurocardiogenic syncope, vaso-depressor vs. cardio -inhibitory 2. CAD with evidence of demand ischemia 3. Hypertension 4. Mitral valve prolapse syndrome 5. Restless leg syndrome PLAN: 1. Continue Lisinopril 10 qd and ASA 81 qd 2. Continue to withhold Losartan 3. Continue Toprol XL 25 qd and titrate dose as tolerated 4. Ambulate and plan to D/C home today with additional outpatient evaluation including tilt table testing, discussed in detail with the patient 5. F/u abd MRI to further elucidate suspected right hepatic lobe and right renal cysts.
--- NOTE | 2018-11-10 13:02 | PN ---
Progress Note, Physician Chief Complaint: feels well no c/o awaiting for MRI results, to f/u outpt as advised - Current Medication List Current Medications: Active Medications Acetaminophen (Tylenol -) 650 mg PO Q4H PRN PRN Reason: PAIN 1-3 Last Admin: 11/09/18 21:34 Dose: 650 mg Aspirin (Asa -) 81 mg PO DAILY [facility] Last Admin: 11/10/18 09:48 Dose: 81 mg Lisinopril (Prinivil) 10 mg PO DAILY [facility] Last Admin: 11/10/18 09:48 Dose: 10 mg Metoprolol Succinate (Toprol Xl -) 25 mg PO DAILY [facility] Last Admin: 11/10/18 09:48 Dose: 25 mg Multivitamins/Minerals (Theragran-M) 1 each PO DAILY [facility] Last Admin: 11/10/18 09:48 Dose: 1 each Multivitamins/Minerals/Vitamin C (Tab-A-Vit -) 1 tab PO DAILY [facility] Last Admin: 11/10/18 09:48 Dose: 1 tab Ranitidine HCl (Zantac -) 150 mg PO DAILY [facility] Last Admin: 11/10/18 09:48 Dose: 150 mg - Objective Vital Signs: Vital Signs Temperature 98.5 F 11/10/18 09:45 Pulse Rate 61 11/10/18 09:45 Respiratory Rate 20 11/10/18 09:45 Blood Pressure 126/65 11/10/18 09:45 O2 Sat by Pulse Oximetry (%) 100 11/10/18 09:00 Constitutional: Yes: No Distress, Calm Eyes: Yes: Conjunctiva Clear HENT: Yes: Atraumatic Neck: Yes: Supple Cardiovascular: Yes: Regular Rate and Rhythm Respiratory: Yes: CTA Bilaterally Gastrointestinal: Yes: Soft. No: Distention Genitourinary: No: CVA Tenderness - Left, CVA Tenderness - Right Musculoskeletal: No: Joint Stiffness, Joint Swelling Extremities: No: Cold, Cool Edema: No Integumentary: No: Rash, Venous Stasis Changes Neurological: Yes: WNL, Alert, Oriented ...Motor Strength: WNL Psychiatric: Yes: WNL, Alert, Oriented. No: Agitated, Suicidal Ideation Labs: CBC, BMP 11/07/18 03:01 11/07/18 05:46 INR, PTT INR 0.96 (0.83-1.09) 11/07/18 04:14 - ....Imaging Other: Report Reviewed Assessment/Plan 68 year old female with PMH HTN, atrophic gastritis, restless leg syndrome, insomnia presented to ED for syncopal episode and fall. New medication changes include increase of dose of ropinirole - now held 1 troponin borderline positive the rest negative, cleared by cardio and neuro to go home, will DC home and f/u as advised. anti-htn meds per cardio eval for renal cyst/mass - will need fu outpt and check MRI report falls pfx [email or web address] pt and staff
[2018-11-10] MEDS: ACETAMINOPHEN 325 MG TABLET (FP) PO PRN (15:12)
[2018-11-10 15:16] VITALS: BP 126/62; PULSE 65; TEMP 98.4
== END 2018-11-10 18:21 | disposition home or self-care (01) | DRG 312 ==
LOC: JER 01:28 → JERBED 07:29 → J4W 20:24
PROVIDERS: ADMIT Internal Medicine; ATTEND Internal Medicine
DX: R55 Syncope and collapse (principal); I24.8 Other forms of acute ischemic heart disease; I10 Essential (primary) hypertension; G25.81 Restless legs syndrome; K29.70 Gastritis, unspecified, without bleeding; G47.00 Insomnia, unspecified; I34.1 Nonrheumatic mitral (valve) prolapse; K57.90 Diverticulosis of intestine, part unspecified, without perforation or abscess without bleeding; M54.5 Low back pain; M51.36 Other intervertebral disc degeneration, lumbar region; M48.02 Spinal stenosis, cervical region; D12.6 Benign neoplasm of colon, unspecified; K29.40 Chronic atrophic gastritis without bleeding; N28.1 Cyst of kidney, acquired; I25.10 Atherosclerotic heart disease of native coronary artery without angina pectoris; T42.8X5A Adverse effect of antiparkinsonism drugs and other central muscle-tone depressants, initial encounter
CPT/HCPCS: 36415; 70450-TC; 70486-TC; 71046-TC-FY; 71250-TC; 72127-TC; 72170-TC-FY; 74176-TC; 74183-TC; 80053; 82550; 82553; 82607; 84443; 84484; 85025; 85610; 85651; 85730; 86038; 86850; 86900; 86901; 93005; 93010; 93880-TC; 99285-25; J0131

== ENCOUNTER 2024-02-11 04:59 | Day surgery (SDC) | payer OTHER, MEDICARE ==
[2024-02-10 10:18] VITALS: BMI 22.4
[2024-02-11 10:02] VITALS: TEMP 97.7
[2024-02-11 10:28] VITALS: PULSE 60
[2024-02-11 10:30] VITALS: BP 147/65; RESP 15
== END 2024-02-11 10:38 | disposition home or self-care (01) ==
LOC: JASU-ENDO 04:59
PROVIDERS: ATTEND Internal Medicine Gastroenterology
PROC: 0DJD8ZZ Inspection of Lower Intestinal Tract, Via Natural or Artificial Opening Endoscopic (ICD-10-PCS; principal; 2024-02-11 09:00)
DX: Z12.11 Encounter for screening for malignant neoplasm of colon (principal); K57.30 Diverticulosis of large intestine without perforation or abscess without bleeding; Z86.010 Personal history of colon polyps; I10 Essential (primary) hypertension